=== PATIENT | male | born 1960 | race Caucasian/White ===

== ENCOUNTER 2016-12-14 13:08 | Day surgery (SDC) | payer BC ==
[~2016-12-14] VITALS: Ht 170.2 cm; Wt 92.0 kg
[2016-12-14 14:17] VITALS: Ht 170.2 cm; Wt 92.0 kg
[2016-12-14] MEDS ORDERED: METAMUCIL ORAL (14:45)
[2016-12-14 15:13] VITALS: BP 116/70; PULSE 65; RESP 16
[2016-12-14] MEDS ORDERED: PROPOFOL 20 ML ONE (15:14)
[2016-12-14 16:25] VITALS: BP 126/77; PULSE 60; RESP 16
--- NOTE | 2016-12-14 17:08 | GILP ---
DATE OF PROCEDURE: NAME OF PROCEDURE: Colonoscopy and polypectomy. SURGEON: Kenna Green MD PREOPERATIVE DIAGNOSIS: Screening colonoscopy. POSTOPERATIVE DIAGNOSES: 1. Colonoscopy all the way to the cecum. 2. Right colon polyp was removed using the snare and electrocautery. 3. Internal hemorrhoids. INDICATION FOR THE PROCEDURE: Mr. Fernando Murray is a 56-year-old male patient who was scheduled for s creening colonoscopy. The procedure and possible complications were well explained to the patient. He understood and cons ented to the procedure. DESCRIPTION OF PROCEDURE: Under the influence of anesthesia, the colonoscope was carefully introduc ed in the rectum, and under direct vision, it was advanced all the way to the cecum. FINDINGS: The patient had a polyp in the right colon, and it was removed using the snare and electr ocautery. He also had internal hemorrhoids. He tolerated the procedure very well. There was no complication from the procedure. At the end of the procedure, he was awake with stable vital signs, and he was discharged home to care of his famil y. IMPRESSION: 1. Colonoscopy all the way to the cecum. 2. Right colon polyp was removed using the snare and electrocautery. 3. Internal hemorrhoids. PLAN: Next screening colonoscopy in 5 years. Dictated By: KENNA ENGLISH/KEYLA Conf#: [id number] DID#: [id number]
== END 2016-12-14 16:26 | disposition home or self-care (01) ==
LOC: GIL 13:08
PROVIDERS: ATTEND Internal Medicine Gastroenterology
DX: Z12.11 Encounter for screening for malignant neoplasm of colon (principal); D12.6 Benign neoplasm of colon, unspecified; K64.8 Other hemorrhoids; E66.9 Obesity, unspecified; Z68.31 Body mass index [BMI] 31.0-31.9, adult